=== PATIENT | male | born 1990 | race Caucasian/White ===

== ENCOUNTER 2018-12-24 16:37 | Emergency (ER) | payer MEDICAID ==
[~2018-12-24] VITALS: Ht 167.6 cm; Wt 52.3 kg
[~2018-12-24 16:37] MED LIST: IBUP-1984 PO; NEOM10DR22 OT; NO HOME MEDS; TRAM50TA2 PO
[2018-12-24 16:40] VITALS: BP 126/88
[2018-12-24] MEDS ORDERED: CEPH500C5 PO (17:03)
[2018-12-24] MEDS ORDERED: PRED20TA PO (17:03)
== END 2018-12-24 17:13 | disposition home or self-care (01) ==
LOC: ER 16:38
DX: L03.116 Cellulitis of left lower limb (principal); F41.0 Panic disorder [episodic paroxysmal anxiety]; F12.90 Cannabis use, unspecified, uncomplicated; Z88.0 Allergy status to penicillin; Z79.899 Other long term (current) drug therapy
CPT/HCPCS: 99283

== ENCOUNTER 2019-03-07 23:47 | Emergency (ER) | payer MEDICAID ==
[~2019-03-07] VITALS: Ht 167.6 cm; Wt 48.2 kg
--- NOTE | 2019-03-08 00:03 | NUR ---
ERIC CONTACTED. CASE # [id number].
[2019-03-08] MEDS ORDERED: HYDROcodone/acetaminophen 5mg/325mg tablet PO ONE (00:20)
[2019-03-08] MEDS ORDERED: ondansetron 4mg rapidly disintigrating tab PO ONE (00:20)
[2019-03-08 01:15] VITALS: BP 120/69
[2019-03-08] MEDS ORDERED: ketorolac trometh inj. 60 MG/2 ML VIAL IM ONE (01:15)
[2019-03-08 01:24] LABS: EOSINOPHILS # (AUTO) 0.1 X10'3 (0-0.9); MONOCYTES # (AUTO) 0.7 X10'3 (0-0.9); MONOCYTES % (AUTO) 9.5 % (2-12); NEUTROPHILS # (AUTO) 4.1 X10'3 (1.8-7.7); NEUTROPHILS % (AUTO) 53.1 % (42-75)
[2019-03-08 01:26] LABS: BASOPHILS % (AUTO) 0.5 % (0-1); EOSINOPHILS % (AUTO) 0.9 % (0-6); HEMATOCRIT 41.6 % (42.0-52.0); LYMPHOCYTES # (AUTO) 2.8 X10'3 (1.1-4.8); MEAN CORPUSCULAR HGB CONC 33.6 g/dL (33.0-36.5); MEAN CORPUSCULAR VOLUME 92.3 FL (78-98); MEAN PLATELET VOLUME 12.4 FL (7.4-10.4); PLATELET COUNT 96 X10'3 (140-440); RED BLOOD COUNT 4.51 X10'6 (4.70-6.10); RED CELL DISTRIBUTION WIDTH 12.7 % (11.5-14.5); WHITE BLOOD COUNT 7.6 X10'3 (4.5-11.0)
[2019-03-08 01:40] LABS: ALANINE AMINOTRANSFERASE 22 U/L (12-78); ALBUMIN 3.9 G/DL (3.4-5.0); ALBUMIN/GLOBULIN RATIO 1.3 (1.1-1.5); ALKALINE PHOSPHATASE 52 IU/L (46-116); ANION GAP 8 (8-16); ASPARTATE AMINO TRANSFERASE 19 U/L (10-37); BILIRUBIN,TOTAL 0.6 MG/DL (0.1-1.0); BLOOD UREA NITROGEN 7 MG/DL (7-18); BUN/CREATININE RATIO 9.5 (5.4-32.0); CALCIUM 9.7 MG/DL (8.5-10.1); CHLORIDE 106 MMOL/L (99-107); CREATININE 0.74 MG/DL (0.60-1.10); GLUCOSE 118 MG/DL (70-104); SODIUM 144 MMOL/L (135-145); TOTAL PROTEIN 6.9 G/DL (6.4-8.2); eGFR > 90 ML/MIN
[2019-03-08 01:42] LABS: POTASSIUM 2.9 MMOL/L (3.5-5.1)
--- NOTE | 2019-03-08 01:47 | NUR ---
LAB CALLED FOR CRITICAL POTASSIUM AFTER PATIENT WAS DISCHARGED, MD MUNOZ AWARE AND HAD VERBALLY ORDERED LABS TO BE CANCELLED. PT LEFT DEPARTMENT AND I WILL ATTEMPT TO CALL THE PATIENT TO GET HIM A PRESCRIPTION FOR K+.
[2019-03-08 01:49] LABS: LARGE PLATELETS MODERATE; PLATELET ESTIMATE DECREASED
--- NOTE | 2019-03-08 01:49 | NUR ---
ATTEMPTED TO CALL PATIENT AND HIS EMERGENCY CONTACT WITH NO ANSWER, NO VOICEMAIL AVAILIBLE.
[2019-03-08 01:50] LABS: GIANT PLATELET FEW
[2019-03-08] MEDS ORDERED: POTA20TA19 PO (02:15)
--- NOTE | 2019-03-08 20:16 | NUR ---
ATTEMPTED TO CALL PATIENT AND HIS EMERGENCY CONTACT TO CALL IN RX FOR KDUR 40 MEQ PO BID X [address] MUNOZ UNABLE TO REACH EITHER AND NOT ABLE TO LEAVE MESSAGE.
--- NOTE | 2019-03-09 19:50 | NUR ---
AGAIN ATTEMPTED TO REACH PT FOR PRESCRIPTION UNABLE TO REACH OR LEAVE MESSAGE.
== END 2019-03-08 01:26 | disposition home or self-care (01) ==
LOC: ER 23:47
DX: S06.0X0A Concussion without loss of consciousness, initial encounter (principal); S00.11XA Contusion of right eyelid and periocular area, initial encounter; M79.644 Pain in right finger(s); F41.9 Anxiety disorder, unspecified; F12.90 Cannabis use, unspecified, uncomplicated; F10.99 Alcohol use, unspecified with unspecified alcohol-induced disorder; Z88.0 Allergy status to penicillin; Z79.899 Other long term (current) drug therapy; Y08.89XA Assault by other specified means, initial encounter; Y93.89 Activity, other specified; Y92.89 Other specified places as the place of occurrence of the external cause; Y99.8 Other external cause status; Y90.9 Presence of alcohol in blood, level not specified
CPT/HCPCS: 36415; 70450; 70486; 73110; 73130; 80053; 85025; 96372; 99284; J1885

== ENCOUNTER 2019-05-09 12:33 | Emergency (ER) | payer MEDICAID ==
[~2019-05-09] VITALS: Ht 167.6 cm; Wt 45.0 kg
[2019-05-09 12:46] VITALS: BP 122/79
== END 2019-05-09 13:52 | disposition home or self-care (01) ==
LOC: ER 12:34
DX: S63.591A Other specified sprain of right wrist, initial encounter (principal); F41.9 Anxiety disorder, unspecified; F12.90 Cannabis use, unspecified, uncomplicated; F10.99 Alcohol use, unspecified with unspecified alcohol-induced disorder; Z88.0 Allergy status to penicillin; Z79.899 Other long term (current) drug therapy; X50.1XXA Overexertion from prolonged static or awkward postures, initial encounter; Y93.89 Activity, other specified; Y92.89 Other specified places as the place of occurrence of the external cause; Y99.8 Other external cause status; Y90.9 Presence of alcohol in blood, level not specified
CPT/HCPCS: 29125; 73100; 99283

== ENCOUNTER 2020-11-15 14:15 | Emergency (ER) | payer MEDICAID, OTHER ==
[~2020-11-15] VITALS: Ht 170.2 cm; Wt 46.0 kg
[2020-11-15 14:31] VITALS: BP 136/87
== END 2020-11-15 15:55 | disposition home or self-care (01) ==
LOC: ER 14:16
DX: S90.111A Contusion of right great toe without damage to nail, initial encounter (principal); M79.675 Pain in left toe(s); F41.9 Anxiety disorder, unspecified; F12.90 Cannabis use, unspecified, uncomplicated; Z72.89 Other problems related to lifestyle; Z88.0 Allergy status to penicillin; Z79.899 Other long term (current) drug therapy; V09.9XXA Pedestrian injured in unspecified transport accident, initial encounter; Y93.89 Activity, other specified; Y92.89 Other specified places as the place of occurrence of the external cause; Y99.8 Other external cause status
CPT/HCPCS: 73630; 73660; 99284

== ENCOUNTER 2024-07-27 09:12 | Emergency (ER) | payer MEDICAID, OTHER ==
[~2024-07-27] VITALS: Ht 167.6 cm; Wt 47.7 kg
[2024-07-27 09:56] LABS: BASOPHILS % (AUTO) 0.5 % (0-1); EOSINOPHILS # (AUTO) 0.2 X10'3 (0-0.9); HEMOGLOBIN 14.4 g/dl (14.0-17.9); MONOCYTES # (AUTO) 0.5 X10'3 (0-0.9); WHITE BLOOD COUNT 5.7 X10'3 (4.5-11.0)
[2024-07-27 09:58] LABS: EOSINOPHILS % (AUTO) 3.4 % (0-6); HEMATOCRIT 43.2 % (42.0-52.0); LYMPHOCYTES % (AUTO) 34.5 % (21-51); MEAN CORPUSCULAR HEMOGLOBIN 30.9 PG (27.0-31.0); MEAN CORPUSCULAR HGB CONC 33.3 g/dL (33.0-36.5); MEAN CORPUSCULAR VOLUME 92.7 FL (78-98); MEAN PLATELET VOLUME 12.3 FL (7.4-10.4); MONOCYTES % (AUTO) 9.4 % (2-12); NEUTROPHILS % (AUTO) 52.2 % (42-75); PLATELET COUNT 92 X10'3 (140-440); RED BLOOD COUNT 4.66 X10'6 (4.70-6.10); RED CELL DISTRIBUTION WIDTH 12.4 % (11.5-14.5)
[2024-07-27 10:15] LABS: ALANINE AMINOTRANSFERASE 18 U/L (12-78); ALBUMIN/GLOBULIN RATIO 1.6 (1.1-1.5); ALKALINE PHOSPHATASE 56 IU/L (46-116); ANION GAP 5 (8-16); ASPARTATE AMINO TRANSFERASE 13 U/L (10-37); BILIRUBIN,TOTAL 0.3 MG/DL (0.1-1.0); BLOOD UREA NITROGEN 10 MG/DL (7-18); BUN/CREATININE RATIO 14.3 (10.0-20.0); CALCIUM 8.7 MG/DL (8.5-10.1); CHLORIDE 107 MMOL/L (99-107); GLUCOSE 95 MG/DL (70-104); POTASSIUM 4.2 MMOL/L (3.5-5.1); SODIUM 144 MMOL/L (135-145); TOTAL CARBON DIOXIDE 31.7 MMOL/L (24-32); TOTAL PROTEIN 6.5 G/DL (6.4-8.2); eCRCL 103 ML/MIN; eGFR > 90 ML/MIN
[2024-07-27 10:19] LABS: GIANT PLATELET FEW; LARGE PLATELETS MODERATE; PLATELET ESTIMATE DECREASED
[2024-07-27 10:22] LABS: PRO BRAIN NATRIURETIC PEPTIDE < 30 PG/ML (0-125)
[2024-07-27 10:48] VITALS: TEMP 97.6
[2024-07-27 12:51] VITALS: BP 137/80; PULSE 55; RESP 16; O2SAT 98
== END 2024-07-27 13:00 | disposition home or self-care (01) ==
LOC: ER 09:12
DX: R55 Syncope and collapse (principal); F41.9 Anxiety disorder, unspecified; F12.90 Cannabis use, unspecified, uncomplicated; F10.90 Alcohol use, unspecified, uncomplicated; F17.210 Nicotine dependence, cigarettes, uncomplicated; Z88.0 Allergy status to penicillin; Y90.9 Presence of alcohol in blood, level not specified
CPT/HCPCS: 36415; 71045; 80053; 83880; 84484; 85008; 85025; 93005; 99285